=== PATIENT | female | born 1985 | race Caucasian/White ===

== ENCOUNTER 2021-04-03 11:12 | Emergency (ER) | payer OTHER, SELFPAY ==
[2021-04-03] VITALS (7 sets, daily range): BP systolic 92–136; BP diastolic 59–79; PULSE 66–80; RESP 10–18; TEMP 37.1; O2SAT 100
--- NOTE | ~2021-04-03 | XR_ITS ---
EXAMINATION: XR chest 2V DATE: 04/03/2021 12:10 INDICATION: Chest pressure. TECHNIQUE: Frontal and lateral views of the chest were obtained. COMPARISON: None. FINDINGS: The chest demonstrates clear lungs without pneumonia, pleural effusion, or pneumothorax. Th e heart size is normal. Surgical clips in the right upper quadrant are likely from cholecystectomy. IMPRESSION: 1. No acute cardiopulmonary disease. Reviewed, dictated and finalized at location A.
--- NOTE | 2021-04-03 11:23 | ECG_ITS ---
Measurements Intervals [place] Rate: 77 P: 41 MS: 127 QRS: 45 QRSD: 92 T: 27 QT: 368 QTc: 419 Interpretive Statements SINUS RHYTHM BASELINE ARTIFACT- I, II, III, AVR, AVL, AVF NORMAL ECG Electronically Signed On 04-03-2021 13:42:32 CDT by Scooby Rivera D.O.
[2021-04-03 11:48] LABS: Basophils Percent Auto 0.7 % (0.2-1.2); Eosinophils Absolute Auto 0.2 K/mm3 (0-0.3); Eosinophils Percent Auto 3.7 % (0-4.4); Hematocrit 36.8 % (37.0-47.0); Hemoglobin 12.6 g/dL (12.0-15.0); Lymphocytes Absolute Auto 1.37 K/mm3 (0.9-3.2); Lymphocytes Percent Auto 29.8 % (18.3-44.2); Mean Corpuscular HGB Conc 34.2 g/dl (32-36); Mean Corpuscular Hemoglobin 30.6 pg (26-34); Mean Corpuscular Volume 89.3 fl (80-100); Mean Platelet Volume 9.5 fl (7.4-10.4); Monocytes Absolute Auto 0.4 K/mm3 (0.1-0.6); Monocytes Percent Auto 8.9 % (2.6-8.5); Neutrophils Absolute Auto 2.6 K/mm3 (1.3-6.7); Neutrophils Percent Auto 56.9 % (45.5-73.1); Platelet Count Result 169 k/mm3 (150-375); Red Blood Count 4.12 M/mm3 (4.2-5.4); White Blood Count 4.6 K/mm3 (4.5-10.0)
[2021-04-03 11:50] LABS: Alveolar/Arterial O2 Gradient 115.3 mmHg; Base Excess ABG 0.3 mEq/l (+/-2.0); Fractional Inspired Oxygen 28 %; HCO3 ABG 25.8 mEq/l (22.0-26.0); Oxygen Content ABG 10.7 %vol (16.0-22.0); Oxyhemoglobin 61.3 % THb (90.0-100.0); PCO2 ABG 45.2 mmHg (35.0-45.0); PO2 FiO2 Ratio Arterial Blood 1.11 %; Total Hemoglobin 12.5 g/dL (12.0-18.0); pH ABG 7.374 (7.350-7.450)
[2021-04-03 11:53] LABS: Device NASAL CANNULA; Modified Allen's Test Pass; Oxygen Saturation ABG 57.4 % (95.0-100.0); Site Drawn LEFT RADIAL
[2021-04-03 11:57] LABS: Anion Gap 9 mmol/L (8-16); Blood Urea Nitrogen 13 mg/dL (7-17); Calcium 9.1 mg/dL (8.4-10.2); Carbon Dioxide 26 mmol/L (22-30); Chloride 106 mmol/L (98-107); Estimated CRCL calculation 88 ml/min; Estimated Glomerular Filt Rate > 60; Glucose 84 mg/dL (65-105); INR 0.9; Potassium 3.8 mmol/L (3.4-5.0); Prothrombin Time 12.8 Seconds (11.1-14.7); Sodium 141 mmol/L (137-145)
[2021-04-03 11:58] LABS: Partial Thromboplastin Time 27.4 SECONDS (22.3-36.8)
--- NOTE | 2021-04-03 12:05 | PC.NURSE ---
pt taken to x ray at this time
[2021-04-03 12:09] LABS: Troponin I < 0.012 ng/mL (0.000-0.034)
--- NOTE | 2021-04-03 12:43 | ED.CHESTPAIN ---
HPI - Chest Pain General Chief Complaint: Chest Pain Stated Complaint: CP Time Seen by Provider: 04/03/21 11:21 Source: patient Mode of arrival: EMS Limitations: no limitations History of Present Illness HPI narrative: 35-year-old female Patient reports that she started having chest pains while she was driving into work today She reports that the pains are anterior sharp last no more than a minute and can be exacerbated by some movements or breathing After she got to work and was active she felt better initially but then the pains returned She smokes marijuana but has no other cardiac risk factors Incidental to all this was that when an ambulance was called her workplace and paramedics responded there monitoring equipment triggered carbon monoxide alerts and the facility was apparently evacuated It does not sound like anyone there required transport or treatment for CO2 poisoning as far as we can tell at this time Patient's carboxyhemoglobin level here is 5 Related Data Allergies Allergy/AdvReac Type Severity Reaction Status Date / Time No Known Allergies Allergy Verified 04/03/21 11:26 Review of Systems Review of Systems: All systems reviewed & are unremarkable except as noted in HPI and below Constitutional: Constitutional: Reports no additional constitutional complaints, Denies chills, Denies fever(s) and Denies headache(s) Eyes: Eyes: Reports no additional eye complaints and Denies change in vision ENT: Denies headache(s) and Denies sore throat Cardiovascular: Cardiovascular: Reports chest pain, Denies radiating jaw, neck or arm pain and Denies dyspnea Respiratory: Respiratory: Denies cough and Denies dyspnea Gastrointestinal: Gastrointestinal: Denies abdominal pain, Denies diarrhea and Denies vomiting Genitourinary: Genitourinary: Denies urinary frequency and Denies dysuria Musculoskeletal: Musculoskeletal: Reports myalgias, Denies deformity, Denies arthralgias, Denies joint swelling and Denies numbness Integumentary/Breasts: Skin/Breast: Denies rash and Denies wounds Neurologic: Reports headache(s), Denies focal weakness and Denies numbness Psychiatric: Psychiatric: Reports no additional psychiatric complaints Endocrine: Endocrine: Reports no additional endocrine complaints Hematologic/Lymphatic: Hematologic/Lymphatic: Reports no additional hematologic/lymphatic complaints Allergic/Immunologic: Allergic/Immunologic: Reports no additional allergic/immunologic complaints PMFSH Social History Social History Gender identity (if verbalized by the patient): Female Exam Const: General: cooperative, no acute distress and alert Nutritional Appearance: thin Orientation/consciousness: patient oriented x3 (alert) HENMT: Head: normal to inspection, normocephalic and atraumatic Ears: external ears normal General nose exam: no epistaxis Eyes: Conjunctivae: conjunctivae normal EOM: EOMs intact bilaterally Neck: Neck: normal visual inspection, supple and no JVD Resp: Effort & Inspection: normal respiratory effort and not labored Auscultation: clear to auscultation bilaterally and other (BS =) Cardio: Rate: regular rate Rhythm: regular rhythm Heart sounds: no murmurs GI: Inspection: non-distended GI Palp: Yes Soft to palpation, No Tenderness to palpation present (GI), No Guarding due to palpation present (GI) and No Rebound tenderness present Skin: General skin exam: normal color and no rashes or lesions noted Neuro: General: patient oriented x3 (alert) and moves all extremities Speech: normal speech Extrem: General: normal to inspection and no pedal edema Other: No calf tenderness Psych: Affect: normal affect Course Vital Signs Vital signs: Vital Signs Temperature 37.1 C 04/03/21 11:13 Pulse Rate 80 04/03/21 11:13 Respiratory Rate 10 L 04/03/21 11:13 Blood Pressure 115/79 04/03/21 11:13 Pulse Oximetry 100 04/03/21 11:13 Temperature 37.1 C 04/03/21 11
[2021-04-03 12:53] LABS: D Dimer 0.27 ug/mL (<0.48)
== END 2021-04-03 14:29 | disposition home or self-care (01) ==
PROVIDERS: Emergency Provider Emergency Medicine
DX: R07.89 Other chest pain (principal)
CPT/HCPCS: 36415; 36600; 71046; 80048; 82805; 84484; 85025; 85380; 85610; 85730; 93005; 99284